=== PATIENT | female | born 1985 | race Caucasian/White ===

== ENCOUNTER 2019-05-24 01:14 | Inpatient (IN) ==
[2019-05-24 02:05] LABS: Apearance,Urine CLEAR (Clear); Bacteria,Urine Occasional /HPF (Few); Bilirubin,Urine Negative (Negative); Blood, Urine Moderate mg/dL (Negative); Glucose,Urine (UA) Negative (Negative); Ketones,Urine Negative (Negative); Mucus,Urine Occasional /LPF (Occasional); Nitrite,Urine Negative (Negative); Protein,Urine Negative; RBC,Urine 22 /HPF (0-4); Squamous Epithelial Cell,Urine Occasional /HPF (0-10); Urine Color Yellow (Yellow); Urine Specific Gravity 1.006 (1.001-1.035); Urine Urobilinogen < 2.0 EU/DL (0.2-1.0); WBC,Urine 1 /HPF (0-6)
[2019-05-24] MEDS ORDERED: MEPERIDINE 50 MG/1 ML VIAL IV PRN (02:37)
[2019-05-24] MEDS ORDERED: BUTORPHANOL 1 MG/ML VIAL IV PRN (02:37)
[2019-05-24] MEDS ORDERED: LACTATED RINGERS 250 ML IV ONE (02:37)
[2019-05-24] MEDS ORDERED: MEPERIDINE 25 MG/1 ML VIAL IV PRN (02:37)
[2019-05-24] MEDS ORDERED: ONDANSETRON 4 MG/2 ML VIAL IV PRN ×2 (02:37→20:02)
[2019-05-24 02:56] LABS: Basophils # 0.1 10*3/uL (0.0-0.2); Basophils % 0.5 % (0.0-0.8); Eosinophils # 0.3 10*3/uL (0.0-0.87); Eosinophils % 1.7 % (0.00-10.9); Hematocrit 36.6 VOL% (35.7-47.0); Hemoglobin 11.6 GM/DL (12.0-16.0); Immature Granulocytes % 2.5 %; Immature Granulocytes Absolute 0.36 #; Lymphocytes # 2.3 10*3/uL (1.4-4.0); Lymphocytes % 15.7 % (21.3-54.2); Mean Corpuscular HGB Conc 31.7 GM/DL (32-36); Mean Corpuscular Volume 90.8 FL (87-102); Mean Platelet Volume 10.6 FL (9.6-12.0); Monocytes % 7.8 % (1.7-12.7); Neutrophils % 71.8 % (38.7-73.9); Platelet Count 271 T/CUMM (130-400); Red Blood Count 4.03 MC/CUMM (3.8-5.5); Red Cell Distribution Width 13.9 % (9.3-17.3); White Blood Count 14.6 T/CUMM (4-12)
[2019-05-24] MEDS: LACTATED RINGERS 1,000 ML IV SCH ×2 (03:31→10:53)
[2019-05-24 03:33] LABS: Alanine Aminotransferase 16 U/L (13-56); Albumin 2.3 G/DL (3.4-5.0); Alkaline Phosphatase 246 U/L (45-117); Aspartate Amino Transferase 21 U/L (0-37); Bilirubin,Total < 0.39 MG/DL (0.2-1.0); Blood Urea Nitrogen 5 MG/DL (7-18); Calcium 9.2 MG/DL (8.5-10.1); Glucose 80 MG/DL (74-106); Osmolality,Calculated 272.5 MOS/KG (273-304); Total Protein 6.9 G/DL (6.4-8.3)
[2019-05-24] MEDS ORDERED: OXYTOCIN/LR 20 UNIT/1,000 ML BAG IV SCH (08:30)
[2019-05-24] MEDS: AMPICILLIN INJ 2,000 MG in SODIUM CHLORIDE 0.9% 100 ML IV SCH ×2 (11:42→17:47)
[2019-05-24] MEDS ORDERED: FAMOTIDINE 20 MG/2 ML VIAL IV ONE (13:10)
[2019-05-24] MEDS ORDERED: ONDANSETRON 4 MG/2 ML VIAL IV ONE (13:10)
[2019-05-24] MEDS ORDERED: diphenhydrAMINE 50 MG/1 ML VIAL IV PRN ×2 (13:10)
[2019-05-24] MEDS ORDERED: hydrOXYzine HCL 25 MG/1 ML VIAL IM PRN (13:10)
[2019-05-24] MEDS ORDERED: NALOXONE 0.4 MG/ML VIAL IV PRN (13:10)
[2019-05-24] MEDS ORDERED: CITRIC ACID/SODIUM CITRATE 30 ML UDCUP PO ONE (13:10)
[2019-05-24] MEDS ORDERED: PROMETHAZINE 25 MG/1 ML VIAL IM ONE (13:10)
[2019-05-24] MEDS ORDERED: fentaNYL 2 MCG/ROPIV 0.2% EPID 100 ML EPIDURAL SCH (13:30)
[2019-05-24] MEDS: ePHEDrine 50 MG/ML AMP IV PRN ×2 (13:58→14:03)
[2019-05-24 15:54] LABS: Apearance,Urine CLEAR (Clear); Bilirubin,Urine Negative (Negative); Blood, Urine Negative (Negative); Glucose,Urine (UA) Negative (Negative); Ketones,Urine 5 mg/dL (Negative); Mucus,Urine Occasional /LPF (Occasional); Nitrite,Urine Negative (Negative); Protein,Urine Negative; RBC,Urine <1 /HPF (0-4); Squamous Epithelial Cell,Urine Occasional /HPF (0-10); Urine Color Yellow (Yellow); Urine Specific Gravity 1.013 (1.001-1.035); Urine Urobilinogen < 2.0 EU/DL (<2.0); WBC,Urine 1 /HPF (0-6)
[2019-05-24] MEDS ORDERED: OXYTOCIN 10 UNIT/ML VIAL IM ONE (18:55)
[2019-05-24] MEDS ORDERED: LIDOCAINE MPF 2% /EPI 20 ML VIAL ONE (18:55)
[2019-05-24] MEDS ORDERED: OXYTOCIN/LR 30 UNIT/1,000 ML BAG IV ONE (18:55)
[2019-05-24] MEDS ORDERED: MORPHINE 10 MG/10 ML VIAL ONE (18:55)
[2019-05-24 19:44] LABS: Cord Arterial Blood HCO3 20.3 MMOL/L
[2019-05-24 19:47] LABS: Cord Venous Blood PCO2 42.2 MMHG; Cord Venous Blood PO2 23.7
[2019-05-24] MEDS ORDERED: MAGNESIUM HYDROXIDE SUSP 30 ML UDCUP PO PRN (20:02)
[2019-05-24] MEDS ORDERED: IBUPROFEN 800 MG TABLET PO PRN (20:02)
[2019-05-24] MEDS ORDERED: ACETAMINOPHEN 325 MG TABLET PO PRN (20:02)
[2019-05-24] MEDS ORDERED: RHO(D) IMMUNE GLOBULIN 300 MCG SYRINGE IM ONE (20:02)
[2019-05-24] MEDS ORDERED: OXYTOCIN/LR 20 UNIT/1,000 ML BAG IV ONE (20:02)
[2019-05-24] MEDS ORDERED: SIMETHICONE CHEW 80 MG TABLET PO PRN (20:02)
[2019-05-24] MEDS ORDERED: MIDAZOLAM 2 MG/2 ML VIAL ONE (20:07)
[2019-05-24] MEDS ORDERED: PHENYLEPHRINE 1 MG/10 ML SYRINGE IV ONE (20:07)
[2019-05-24] MEDS ORDERED: LACTATED RINGERS 1,000 ML IV SCH (20:30)
[2019-05-24] MEDS ORDERED: HYDROmorphone 2 MG/1 ML VIAL IV PRN (20:31)
[2019-05-24] MEDS: KETOROLAC 30 MG/1 ML VIAL IV SCH (20:43)
[2019-05-25] MEDS: DOCUSATE SODIUM 100 MG CAPSULE PO SCH ×3 (00:26→21:19)
[2019-05-25] MEDS ORDERED: diphenhydrAMINE CAP 25 MG CAPSULE PO PRN (00:37)
[2019-05-25] MEDS: KETOROLAC 30 MG/1 ML VIAL IV SCH ×4 (02:36→21:19)
[2019-05-25] MEDS: ceFAZolin 1,000 MG in SYRINGE 1 EACH IV SCH ×2 (02:46→10:27)
[2019-05-25 05:43] LABS: Basophils # 0.1 10*3/uL (0.0-0.2); Basophils % 0.2 % (0.0-0.8); Eosinophils # 0.1 10*3/uL (0.0-0.87); Eosinophils % 0.5 % (0.00-10.9); Hematocrit 23.5 VOL% (35.7-47.0); Hemoglobin 7.5 GM/DL (12.0-16.0); Immature Granulocytes % 1.4 %; Immature Granulocytes Absolute 0.29 #; Lymphocytes # 2.3 10*3/uL (1.4-4.0); Mean Corpuscular HGB Conc 31.9 GM/DL (32-36); Mean Corpuscular Volume 91.1 FL (87-102); Mean Platelet Volume 10.7 FL (9.6-12.0); Monocytes % 6.1 % (1.7-12.7); Neutrophils % 80.8 % (38.7-73.9); Platelet Count 209 T/CUMM (130-400); Red Blood Count 2.58 MC/CUMM (3.8-5.5); White Blood Count 21.3 T/CUMM (4-12)
[2019-05-25 06:05] LABS: Eosinophils 1 % (0-10); Hypochromasia 1+; Lymphocytes 10 % (20-55); Platelet Estimate Adequate; Segmented Neutrophils 83 % (50-85); Total Cells Counted 100
[2019-05-25] MEDS: FERROUS SULFATE 325 MG TABLET PO SCH ×3 (08:33→21:19)
[2019-05-25] MEDS: MULTIVITAMIN (PRENATAL) TABLET PO SCH (08:33)
[2019-05-25] MEDS: METOCLOPRAMIDE 10 MG TABLET PO SCH ×3 (08:33→23:57)
[2019-05-25] MEDS ORDERED: SODIUM CHLORIDE 0.9% 1,000 ML IV PRN (09:22)
[2019-05-25] MEDS ORDERED: SERTRALINE 50 MG TABLET PO SCH (12:21)
[2019-05-25 18:25] LABS: Hematocrit 28.4 VOL% (35.7-47.0)
[2019-05-25 18:33] LABS: Hemoglobin 9.2 GM/DL (12.0-16.0)
[2019-05-26 07:25] VITALS: BP 107/68
[2019-05-26] MEDS: FERROUS SULFATE 325 MG TABLET PO SCH (09:49)
[2019-05-26] MEDS: MULTIVITAMIN (PRENATAL) TABLET PO SCH (09:49)
[2019-05-26] MEDS: METOCLOPRAMIDE 10 MG TABLET PO SCH (09:49)
[2019-05-26] MEDS: DOCUSATE SODIUM 100 MG CAPSULE PO SCH (09:49)
[2019-05-26] MEDS ORDERED: DIPH/TET/ACEL PERT BOOSTER VACCINE 0.5 ML VIAL IM ONE (10:00)
== END 2019-05-26 11:45 | disposition home or self-care (01) | DRG 787 ==
LOC: N.LD 01:14 → N.LDOUT 01:14 → N.LD 01:16 → N.OB 23:20
PROVIDERS: ADMIT Obstetrics & Gynecology; ATTEND Obstetrics & Gynecology
PROC: LDCSECT (ICD-10-PCS; 2019-05-24 18:50)